=== PATIENT | male | born 1970 | race African-American/Black ===

== ENCOUNTER 2025-05-30 19:48 | Observation (INO) | payer BC ==
[2025-05-30] MEDS ORDERED: dilTIAZem HCL 125 MG/25 ML - 25 ML VIAL ONE ×2 (20:18→20:48)
[2025-05-30 20:20] LABS: MCHC 31.9 g/dl (32.3-36.5); MEAN CELL VOLUME 87.6 fl (79.0-92.2); MEAN PLT VOLUME 10.9 fl (9.4-12.4); RDW 12.6 % (12.2-16.1)
[2025-05-30] MEDS: dilTIAZem HCL 50 MG/10 ML - 10 ML VIAL IVPUSH ONE ×2 (20:30→21:05)
[2025-05-30 20:31] LABS: INR 1.02 (0.83-1.09); PROTHROMBIN TIME (PATIENT) 11.2 SEC (9.7-13.0)
[2025-05-30 20:34] LABS: ACTIVATED PTT 33.3 SECONDS (25.2-36.5)
[2025-05-30 20:42] LABS: GLUCOSE,RANDOM 141 mg/dL (74-106)
[2025-05-30 20:43] LABS: TOT PROT 8.4 g/dl (6.4-8.2)
[2025-05-30 20:44] LABS: CO2 24 mmol/L (21-32)
[2025-05-30 20:45] LABS: ALK PHOS 118 U/L (40-150)
[2025-05-30 20:48] LABS: CREATININE 0.92 mg/dL (0.55-1.3); SGOT/AST 29 U/L (5-34); SGPT/ALT 18 U/L (0-55)
[2025-05-30] MEDS: SODIUM CHLORIDE 0.9% 500 ML INFUS.BAG IV ONE (21:07)
[2025-05-30] MEDS ORDERED: APIXABAN 5 MG TABLET ONE (22:43)
[2025-05-30] MEDS: APIXABAN 5 MG TABLET PO ONE (22:51)
[2025-05-30] MEDS: LACTATED RINGERS SOLUTION 1,000 ML IV SCH (23:00)
[2025-05-31 00:06] VITALS: BMI 36.2
[2025-05-31 08:05] LABS: MCHC 32.1 g/dl (32.3-36.5); MEAN CELL VOLUME 87.3 fl (79.0-92.2); MEAN PLT VOLUME 11.3 fl (9.4-12.4); RDW 13.0 % (12.2-16.1)
[2025-05-31 08:22] LABS: GLUCOSE,RANDOM 97.0 mg/dL (74-106)
[2025-05-31 08:23] LABS: TOT PROT 6.9 g/dl (6.4-8.2)
[2025-05-31 08:24] LABS: CO2 28.0 mmol/L (21-32)
[2025-05-31 08:25] LABS: ALK PHOS 112.0 U/L (40-150)
[2025-05-31 08:28] LABS: CREATININE 0.86 mg/dL (0.55-1.3); SGOT/AST 21.0 U/L (5-34); SGPT/ALT 16.0 U/L (0-55)
[2025-05-31] MEDS: APIXABAN 5 MG TABLET PO SCH (09:48)
[2025-05-31] MEDS: DIGOXIN 0.25 MG TABLET PO SCH (15:55)
[2025-05-31] MEDS: SODIUM CHLORIDE 1,000 ML IV SCH (15:56)
[2025-05-31] MEDS: METOPROLOL TARTRATE 50 MG TABLET (FP) PO SCH (15:56)
[2025-06-01 06:31] LABS: MCHC 32.0 g/dl (32.3-36.5); MEAN CELL VOLUME 88.9 fl (79.0-92.2); MEAN PLT VOLUME 11.4 fl (9.4-12.4); RDW 13.1 % (12.2-16.1)
[2025-06-01 06:47] LABS: GLUCOSE,RANDOM 91.0 mg/dL (74-106)
[2025-06-01 06:48] LABS: CO2 27.0 mmol/L (21-32)
[2025-06-01 06:52] LABS: CREATININE 0.95 mg/dL (0.55-1.3)
[2025-06-01 09:14] VITALS: BP 113/86; PULSE 63; RESP 17; TEMP 97.9
== END 2025-06-01 13:30 | disposition home or self-care (01) ==
LOC: JER 19:48 → JERBED 22:08 → J6W TELE 23:55
PROVIDERS: ADMIT Student in an Organized Health Care Education/Training Program; ATTEND Internal Medicine
PROC: 3E033GC Introduction of Other Therapeutic Substance into Peripheral Vein, Percutaneous Approach (ICD-10-PCS; principal; 2025-05-30)
PROC: 3E0337Z Introduction of Electrolytic and Water Balance Substance into Peripheral Vein, Percutaneous Approach (ICD-10-PCS; 2025-05-30)
DX: I48.0 Paroxysmal atrial fibrillation (principal); I10 Essential (primary) hypertension; E66.9 Obesity, unspecified; Z90.49 Acquired absence of other specified parts of digestive tract
CPT/HCPCS: 36415; 71046-TC-FY; 80048; 80053; 82550; 83735; 84100; 84484; 85027; 85610; 85730; 87637-QW; 93005; 93010; 99285-25; G0378